=== PATIENT | female | born 1990 | race Two or more races ===

== ENCOUNTER 2023-01-13 10:52 | Emergency (ER) | payer BC, MEDICAID ==
[~2023-01-13] VITALS: Ht 157.5 cm; Wt 90.0 kg
[2023-01-13] MEDS ORDERED: SUMAtriptan SUCCINATE 6 MG/0.5 ML VL SC ONE (14:00)
[2023-01-13] MEDS ORDERED: SUMA50TA2 PO (14:37)
[2023-01-13 14:41] VITALS: BP 124/90; TEMP 98.6
[2023-01-13 14:46] VITALS: PULSE 79; RESP 16; O2SAT 100
== END 2023-01-13 14:50 | disposition home or self-care (01) ==
LOC: ER 10:52
DX: G43.909 Migraine, unspecified, not intractable, without status migrainosus (principal)
CPT/HCPCS: 70450; 96372; 99285; J3030